=== PATIENT | female | born 1955 | race Two or more races ===

== ENCOUNTER 2022-05-04 11:22 | Emergency (ER) | payer OTHER ==
[~2022-05-04] VITALS: Ht 152.4 cm; Wt 88.5 kg
[~2022-05-04 11:22] MED LIST: COZAAR50 MG
[2022-05-04] MEDS ORDERED: SYNTHROID200 MCG PO (11:55)
[2022-05-04] MEDS ORDERED: NORVASC2.5 MG PO (11:55)
[2022-05-04] MEDS ORDERED: LORAZEPAM0.5 MG PO (11:55)
[2022-05-04] MEDS ORDERED: ALZ SR CAPLET1 EACH PO (11:55)
== END 2022-05-04 23:53 | disposition home or self-care (01) ==
LOC: ER 11:22
DX: R41.82 Altered mental status, unspecified (principal); I10 Essential (primary) hypertension; Z88.2 Allergy status to sulfonamides; E03.9 Hypothyroidism, unspecified
CPT/HCPCS: 70551